=== PATIENT | female | born 1995 | race African-American/Black ===

== ENCOUNTER 2018-03-15 09:23 | Emergency (ER) | payer MEDICAID, OTHER ==
[~2018-03-15] VITALS: Ht 167.6 cm; Wt 118.0 kg
[2018-03-15 11:38] LABS: BASOPHILS % 0.8 % (0.0-2.0); EOSINOPHILS % 2.7 % (0.0-5.0); HEMATOCRIT. 36.5 % (36.0-48.0); HEMOGLOBIN. 11.8 g/dL (12.0-16.0); LYMPHOCYTES % 50.9 % (20.0-50.0); MEAN CORPUSCULAR HEMOGLOBIN 24.4 pg (28.0-32.0); MEAN CORPUSCULAR VOLUME 75.2 fL (81.0-99.0); MONOCYTES % 7.7 % (2.0-8.0); NEUTROPHILS % 37.9 % (40.0-76.0); PLATELET 202 x1000/uL (130-400); RED BLOOD CELL COUNT 4.86 mill/uL (4.2-5.4); RED CELL DISTRIBUTION WIDTH 17.4 % (11.6-14.6)
[2018-03-15 11:58] LABS: CHLORIDE 105 mEq/L (98-107)
[2018-03-15 12:07] LABS: HCG SCREEN NEGATIVE
[2018-03-15 14:53] VITALS: BP 122/76
== END 2018-03-15 14:54 | disposition home or self-care (01) ==
LOC: ER 09:23
DX: R07.9 Chest pain, unspecified (principal)
CPT/HCPCS: 36415; 71045; 81025; 84703; 85379; 93005; 99284